=== PATIENT | male | born 1970 | race Two or more races ===

== ENCOUNTER 2024-11-14 12:40 | Day surgery (SDC) | payer MEDICAID, SELFPAY ==
[2024-11-14] VITALS (11 sets, daily range): BP systolic 121–154; BP diastolic 68–85; PULSE 47–58; RESP 13–20; TEMP 36.4–36.6; O2SAT 97–100; BMI 23.3
[2024-11-14] MEDS: MIDAZOLAM INJ 1 MG/ML VIAL 2 ML (ASD USE ONLY) 2 MG IVP (14:12)
[2024-11-14] MEDS: RINGERS LACTATED 1000 ML 1,000 ML 100 ML IV (14:12)
[2024-11-14] MEDS: fentaNYL CIT INJ 50 mCg/ML AMP 2ML (ASD USE ONLY) IVP (14:14)
== END 2024-11-14 15:20 | disposition home or self-care (01) ==
PROVIDERS: Referring Provider Surgery; Visit Provider Surgery
PROC: 0DBE8ZX Excision of Large Intestine, Via Natural or Artificial Opening Endoscopic, Diagnostic (ICD-10-PCS; CPT 45380; principal; 2024-11-14 14:30)
DX: Z12.11 Encounter for screening for malignant neoplasm of colon (principal); D12.0 Benign neoplasm of cecum; K57.30 Diverticulosis of large intestine without perforation or abscess without bleeding; I10 Essential (primary) hypertension; L40.9 Psoriasis, unspecified
CPT/HCPCS: 45380; J2250; J3010; J7120